=== PATIENT | female | born 1960 | race African-American/Black ===

== ENCOUNTER 2021-06-09 14:22 | Inpatient (IN) | payer BC ==
[2021-06-09] MEDS ORDERED: MAGNESIUM HYDROX 2400MG/30ML ORAL SUSPENSION 30 ML CUP PO PRN (14:56)
[2021-06-09] MEDS ORDERED: NICOTINE 10 MG CARTRIDGE (INHALER) IH PRN (14:56)
[2021-06-09] MEDS ORDERED: MAGNESIUM CITRATE 300 ML BOTTLE PO PRN (14:56)
[2021-06-09] MEDS ORDERED: IBUPROFEN 400 MG TABLET (FP) PO PRN (14:56)
[2021-06-09] MEDS ORDERED: BENZOCAINE/MENTHOL (CHLORASEPTIC ) LOZENGE MM PRN (14:56)
[2021-06-09] MEDS ORDERED: methaDONE HCL 10 MG TABLET (FOR DETOX USE ONLY) PO ONE ×2 (14:56→22:00)
[2021-06-09] MEDS ORDERED: BISMUTH SUBSALICYLATE 524 MG/30 ML PO PRN (14:56)
[2021-06-09] MEDS ORDERED: ONDANSETRON *ODT* 4 MG TABLET SL PRN (14:56)
[2021-06-09] MEDS ORDERED: LOPERAMIDE HCL 2 MG CAPSULE PO PRN (14:56)
[2021-06-09] MEDS ORDERED: ACETAMINOPHEN 325 MG TABLET (FP) PO PRN ×2 (14:56)
[2021-06-09] MEDS ORDERED: NICOTINE 7 MG/24 HOURS TOPICAL PATCH TD SCH (15:00)
[2021-06-09 19:50] VITALS: BMI 26.2
[2021-06-09] MEDS: hydrOXYzine PAMOATE 25 MG CAPSULE (FP) PO SCH ×2 (21:50→23:02)
[2021-06-09] MEDS: PRENATAL VITAMINS W/ FOLIC ACID TABLET (FP) PO SCH (21:50)
[2021-06-09] MEDS: cloNIDine HCL 0.1 MG TABLET PO PRN (22:44)
[2021-06-09] MEDS: MELATONIN 5 MG TABLETS PO SCH (22:45)
[2021-06-09] MEDS: THIAMINE HCL 100 MG TABLET (FP) PO SCH (22:46)
[2021-06-10] MEDS: hydrOXYzine PAMOATE 25 MG CAPSULE (FP) PO SCH ×5 (07:00→22:38)
[2021-06-10] MEDS ORDERED: methaDONE HCL 10 MG TABLET (FOR DETOX USE ONLY) ONE (09:12)
[2021-06-10] MEDS: PRENATAL VITAMINS W/ FOLIC ACID TABLET (FP) PO SCH (10:04)
[2021-06-10 10:46] LABS: HEMATOCRIT 31.7 % (32.4-45.2); HEMOGLOBIN 10.8 GM/dL (10.7-15.3); MCH 31.2 pg (25.7-33.7); MEAN PLT VOLUME 7.8 fl (7.5-11.1); PLATELET COUNT 229 10^3/uL (134-434); RBC 3.44 M/mm3 (3.60-5.2); WHITE BLOOD COUNT 4.9 K/mm3 (4.0-10.0)
[2021-06-10 10:47] LABS: ALBUMIN 2.8 g/dl (3.4-5.0); BLOOD UREA NITROGEN 9.1 mg/dL (7-18)
[2021-06-10 10:52] LABS: BILIRUBIN,TOTAL 0.4 mg/dL (0.2-1)
[2021-06-10 10:53] LABS: TOT PROT 5.9 g/dl (6.4-8.2)
[2021-06-10 10:54] LABS: CREATININE 0.5 mg/dL (0.55-1.3)
[2021-06-10] MEDS: SERTRALINE HCL 50 MG TABLET (FP) PO SCH (12:34)
[2021-06-10] MEDS: MAG HYDROX/AL HYDROX/SIMETH 30 ML UNIT-DOSE CUP PO PRN (18:50)
[2021-06-10] MEDS: METHOCARBAMOL 500 MG TABLET PO PRN (18:50)
[2021-06-10] MEDS: cloNIDine HCL 0.1 MG TABLET PO PRN (18:50)
[2021-06-10] MEDS: THIAMINE HCL 100 MG TABLET (FP) PO SCH (22:35)
[2021-06-10] MEDS: MELATONIN 5 MG TABLETS PO SCH (22:35)
[2021-06-11] MEDS: DICYCLOMINE HCL 10 MG CAPSULE PO PRN ×3 (03:40→22:05)
[2021-06-11] MEDS: hydrOXYzine PAMOATE 25 MG CAPSULE (FP) PO SCH ×5 (07:29→22:04)
[2021-06-11] MEDS ORDERED: methaDONE HCL 10 MG TABLET (FOR DETOX USE ONLY) PO ONE (10:00)
[2021-06-11] MEDS: PRENATAL VITAMINS W/ FOLIC ACID TABLET (FP) PO SCH (10:52)
[2021-06-11] MEDS: SERTRALINE HCL 50 MG TABLET (FP) PO SCH (10:55)
[2021-06-11] MEDS: SIMETHICONE 80 MG TAB.CHEW (FP) PO PRN ×3 (13:58→22:04)
[2021-06-11] MEDS: LOSARTAN 50MG/HCTZ 12.5MG 1 TAB PO SCH (13:58)
[2021-06-11 16:08] LABS: SARS-CoV-2 NAA Not Detected (Not Detected)
[2021-06-11] MEDS: MAG HYDROX/AL HYDROX/SIMETH 30 ML UNIT-DOSE CUP PO PRN (16:28)
[2021-06-11] MEDS: cloNIDine HCL 0.1 MG TABLET PO PRN ×2 (17:55→22:05)
[2021-06-11] MEDS: THIAMINE HCL 100 MG TABLET (FP) PO SCH (22:04)
[2021-06-11] MEDS: MELATONIN 5 MG TABLETS PO SCH (22:04)
[2021-06-12] MEDS: LEVOTHYROXINE NA 25 MCG TABLET (FP) PO SCH (07:27)
[2021-06-12] MEDS: hydrOXYzine PAMOATE 25 MG CAPSULE (FP) PO SCH ×5 (07:28→22:10)
[2021-06-12] MEDS ORDERED: methaDONE HCL 10 MG TABLET (FOR DETOX USE ONLY) ONE (08:50)
[2021-06-12] MEDS: PRENATAL VITAMINS W/ FOLIC ACID TABLET (FP) PO SCH (10:31)
[2021-06-12] MEDS: SERTRALINE HCL 50 MG TABLET (FP) PO SCH (10:31)
[2021-06-12] MEDS: LOSARTAN 50MG/HCTZ 12.5MG 1 TAB PO SCH (10:32)
[2021-06-12] MEDS: diazePAM 5 MG TABLET PO PRN (17:53)
[2021-06-12] MEDS: THIAMINE HCL 100 MG TABLET (FP) PO SCH (22:10)
[2021-06-12] MEDS: MELATONIN 5 MG TABLETS PO SCH (22:10)
[2021-06-13] MEDS: hydrOXYzine PAMOATE 25 MG CAPSULE (FP) PO SCH ×5 (06:29→22:10)
[2021-06-13] MEDS: LEVOTHYROXINE NA 25 MCG TABLET (FP) PO SCH (06:29)
[2021-06-13] MEDS ORDERED: methaDONE HCL 10 MG TABLET (FOR DETOX USE ONLY) PO ONE (10:00)
[2021-06-13] MEDS: SERTRALINE HCL 50 MG TABLET (FP) PO SCH (10:40)
[2021-06-13] MEDS: PRENATAL VITAMINS W/ FOLIC ACID TABLET (FP) PO SCH (10:41)
[2021-06-13] MEDS: METHOCARBAMOL 500 MG TABLET PO PRN (10:41)
[2021-06-13] MEDS: diazePAM 5 MG TABLET PO PRN (10:41)
[2021-06-13] MEDS: LOSARTAN 50MG/HCTZ 12.5MG 1 TAB PO SCH (10:42)
[2021-06-13] MEDS: SIMETHICONE 80 MG TAB.CHEW (FP) PO PRN (20:45)
[2021-06-13] MEDS: THIAMINE HCL 100 MG TABLET (FP) PO SCH (22:10)
[2021-06-13] MEDS: MELATONIN 5 MG TABLETS PO SCH (22:10)
[2021-06-13] MEDS: MAG HYDROX/AL HYDROX/SIMETH 30 ML UNIT-DOSE CUP PO PRN (22:11)
[2021-06-14] MEDS: LEVOTHYROXINE NA 25 MCG TABLET (FP) PO SCH (06:06)
[2021-06-14] MEDS: hydrOXYzine PAMOATE 25 MG CAPSULE (FP) PO SCH ×3 (06:06→15:46)
[2021-06-14 09:04] VITALS: PULSE 59
[2021-06-14] MEDS: PRENATAL VITAMINS W/ FOLIC ACID TABLET (FP) PO SCH (10:28)
[2021-06-14] MEDS: SERTRALINE HCL 50 MG TABLET (FP) PO SCH (10:30)
[2021-06-14] MEDS: LOSARTAN 50MG/HCTZ 12.5MG 1 TAB PO SCH (10:30)
[2021-06-14 13:13] VITALS: BP 132/69; TEMP 97.5
[2021-06-14] MEDS: MAG HYDROX/AL HYDROX/SIMETH 30 ML UNIT-DOSE CUP PO PRN (16:34)
[2021-06-14] MEDS: SIMETHICONE 80 MG TAB.CHEW (FP) PO PRN (16:34)
== END 2021-06-14 17:18 | disposition home or self-care (01) | DRG 897 ==
LOC: EDSEX 14:22 → YASAS 14:22 → Y3N 20:55
PROVIDERS: ADMIT Allergy & Immunology; ATTEND Allergy & Immunology
PROC: HZ2ZZZZ Detoxification Services for Substance Abuse Treatment (ICD-10-PCS; principal; 2021-06-09)
DX: F11.23 Opioid dependence with withdrawal (principal); F14.20 Cocaine dependence, uncomplicated; F10.10 Alcohol abuse, uncomplicated; F41.8 Other specified anxiety disorders; F32.A Depression, unspecified; I10 Essential (primary) hypertension; E03.9 Hypothyroidism, unspecified; K59.00 Constipation, unspecified; Z87.891 Personal history of nicotine dependence; Z86.59 Personal history of other mental and behavioral disorders; Z86.19 Personal history of other infectious and parasitic diseases
CPT/HCPCS: 36415; 80053; 85027; 86593; 86780; 93005; 93010; C9803-CS; J0735; U0003; U0005